=== PATIENT | female | born 1990 | race Caucasian/White ===

== ENCOUNTER 2022-11-18 05:13 | Emergency (ER) | payer BC ==
[~2022-11-18] VITALS: Ht 162.6 cm; Wt 94.5 kg
[~2022-11-18 05:13] MED LIST: BCP TD; CEFTIN500 MG PO; NORCO 325 MG-51 TAB PO; PROVENTIL0.09 MG/A1 IH; PYRIDIUM200 M1 PO; SLEEPING PILL; ZYRTEC 10MG10 MG PO; ZYRTEC10 MG PO; [UNRECOGNIZED DRUG - REMARK]
[2022-11-18 05:18] VITALS: BP 115/7; TEMP 98.8
[2022-11-18 05:42] LABS: STREP SCREEN NEGATIVE
[2022-11-18 06:03] LABS: BASO % 0.4 % (0.0-2.0); EOS # 0.2 K/mm3 (0.0-0.7); EOS % 1.6 % (0.0-4.0); GRAN # 8.2 K/mm3 (1.4-6.5); GRAN % 75.9 % (42.2-75.2); HEMATOCRIT 40.8 % (37.0-47.0); HEMOGLOBIN 13.8 g/dl (12.5-16.0); LYMPH # 1.1 K/mm3 (1.2-3.4); LYMPH % 9.9 % (20.0-51.0); MEAN CELL VOLUME 90 fl (80.0-100.0); MEAN CORPUSCULAR HEMOGLOBIN 31 pg (27-31); MEAN CORPUSCULAR HGB CONC 34 g/dl (33.0-37.0); MEAN PLATELET VOLUME 9.4 fl (7.4-10.4); MONO # 1.3 K/mm3 (0.1-0.6); MONO % 11.8 % (1.7-9.3); PLATELET COUNT 307 K/mm3 (130-400); RED BLOOD COUNT 4.52 M/mm3 (4.10-5.30); REDCELL DISTRIBUTION WIDTH-CV 12.7 % (11.5-14.5)
[2022-11-18 06:21] LABS: ALBUMIN 3.5 gm/dL (3.5-5.0); BILIRUBIN,TOTAL 0.5 mg/dL (0.2-1.2); CALCIUM 9.2 mg/dL (8.4-10.2); CREATININE, serum 0.74 mg/dL (0.57-1.11); POTASSIUM 3.9 mmol/L (3.5-4.5); TOTAL PROTEIN 6.9 gm/dL (6.2-8.1)
[2022-11-18 06:24] LABS: MONOSCREEN NEGATIVE
[2022-11-18] MEDS ORDERED: PERCOCET 325 MG1 TA2 PO (06:50)
[2022-11-18] MEDS ORDERED: CLEOCIN HCL300 MG PO (06:50)
[2022-11-18 08:55] VITALS: PULSE 99
[2022-11-20] MEDS ORDERED: LIDOCAINE HCL100 M1 MM (13:32)
[2022-11-20] MEDS ORDERED: AMOXICILLIN 8751 TAB PO (13:32)
== END 2022-11-18 08:55 | disposition home or self-care (01) ==
LOC: COL.ER 05:13
PROVIDERS: Personal Emergency Response Attendant
DX: J02.9 Acute pharyngitis, unspecified (principal); Z20.822 Contact with and (suspected) exposure to COVID-19
CPT/HCPCS: J0696; J1100; J7030; Q9967